=== PATIENT | male | born 1940 | race Caucasian/White ===

== ENCOUNTER 2016-05-16 10:05 | Emergency (ER) | payer OTHER ==
--- NOTE | 2016-05-16 11:04 | ERRECORD ---
[facility] EMERGENCY RECORD HPI URI (10:49 JL) CHIEF COMPLAINT: Patient presents for evaluation of sore throat, Patient presents for evaluation of nasal congestion, Patient presents for evaluation of cough, Patient presents for evaluation of PT with 1.5 weeks of runny nose, congestion, dry cough, sore throat, and body aches. Treated by PCP with clindamycin but no help. HISTORIAN: History provided by patient. LOCATION: Symptoms are generalized. QUALITY: Pain is dull in nature, described as aching. TIME COURSE: Patient unable to describe onset of symptoms, There has been no change in the patient's symptoms over time, are intermittent. ASSOCIATED WITH: No associated chest pain, No associated chills, No associated fever, Associated with headache, intermittent, No associated shortness of breath. EXACERBATED BY: Patient's condition exacerbated by nothing. RELIEVED BY: Patient's condition relieved by nothing. ROS (10:53 JLOY) CONSTITUTIONAL: Historian denies chills, denies fever. EYES: Historian denies eye pain, denies eye redness, denies eye discharge. ENT: Historian reports otalgia, reports rhinorrhea, reports sinus pain, reports sore throat. CARDIOVASCULAR: Historian denies chest pain. RESPIRATORY: Historian reports cough, denies shortness of breath, denies sputum. GI: Historian denies abdominal pain, denies diarrhea, denies nausea, denies vomiting. GENITOURINARY MALE: Historian denies dysuria, denies hematuria. MUSCULOSKELETAL: Historian reports arthralgias, reports myalgias. SKIN: Historian denies rash, denies skin changes. NEUROLOGIC: Historian denies dizziness, reports headache, denies paralysis, denies paresthesias, denies sensory changes. PAST MEDICAL HISTORY MEDICAL HISTORY: Past medical history includes genitourinary history, benign prostatic hypertrophy, Past medical history includes cardiac history, unspecified arrhythmia, gastrointestinal disease, gastroesophageal reflux disease, musculoskeletal disorder, osteoarthritis, cardiac history, coronary artery disease.history of diabetes, Type II, history of hyperlipidemia, includes history of hypertension, which has been treated, musculoskeletal disorder, gout. (10:21 MCBE) MALE SURGICAL HISTORY: hemorroidectomy,intestinal surg,cataract 2 years ago. (10:21 MCBE) SOCIAL HISTORY: Patient denies alcohol use, Patient denies &a-1R&a+25V*p+0X*[id number]*c152B*c15G*c2P*p-0X&a-25V&a+1R Name: Sugar Jamison : 1940 M75 MedRec: [id number] AcctNum: [id number] Prepared: Prachi May 16, 2016 11:02 by Interface Page 1 of 4 pMD [facility] EMERGENCY RECORD drug use, Patient is a former tobacco user, smoked cigarettes, Patient quit smoking more than 10 years ago. (10:21 MCBE) NOTES: Nursing records reviewed, Agree with nursing records. (10:54 [facility]) KNOWN ALLERGIES Actos actos,lipitor,gliburide,vicodin,relafen,lodine,celebrex,damon (Unconfirmed) aspirin: Reaction: Nausea, Severity: Moderate CeleBREX glyBURIDE Januvia Lipitor Lodine Relafen Sulfa (Sulfonamide Antibiotics) Vicodin CURRENT MEDICATIONS (10:19 MC) Victoza 3-Ferdinand: PEN INJECTOR (ML) : Strength - 0.6 mg/0.1 mL (18 mg/3 mL) : [3 mL(s)] : SUBCUTANEOUS Patient Dose: 0.6 mL Subcutaneous once a day. folic acid: TABLET : Strength - 1 mg : ORAL Patient Dose: 1 tab(s) Oral once a day. allopurinol: TABLET : Strength - 300 mg : ORAL Patient Dose: 1 tab(s) Oral once a day. metFORMIN: TABLET : Strength - 500 mg : ORAL Patient Dose: 2 tab(s) Oral 2 times a day. Plavix: TABLET : Strength - 75 mg : ORAL Patient Dose: 1 tab(s) Oral once a day. finasteride: TABLET : Strength - 5 mg : ORAL Patient Dose: 1 tab(s) Oral once a day (in the morning). doxazosin: TABLET : Strength - 8 mg : ORAL Patient Dose: 1 tab(s) Oral once a day. diclofenac sodium: TABLET, DELAYED RELEASE (ENTERIC COATED) : Strength - 75 mg : ORAL Patient Dose: 1 tab(s) Oral 2 times a day. Aleve: TABLET : Strength - 220 mg : ORAL Patient Dose: 1 tab(s) Oral As Needed. methotrexate sodium: TABLET : Strength - 2.5 mg : ORAL Patient Dose: 8 tab(s) Oral once a week. &a-1R&a+25V*p+0X*t2993T*c152B*c15G*c2P*p-0X&a-25V&a+1R Name: Sugar Jamison : 1940 M75 MedRec: [id number] AcctNum: [id number] Prepared: Prachi May 16, 2016 11:02 by Interface Page 2 of 4 pMD [facility] EMERGENCY RECORD Colcrys: TABLET : Strength - 0.6 mg : ORAL Patient Dose: 1 tab(s) Oral 2 times a day. hydrOXYzine HCl: TABLET : Strength - 25 mg : ORAL Patient Dose: 1 tab(s) Oral every 8 hours PRN. ICaps: TABLET, EXTENDED RELEASE : ORAL Patient Dose: 1 cap(s) Oral once a day (in the morning). Vitamin B-12: TABLET : Strength - 1,000 mcg : ORAL Patient Dose: 3 cap(s) Oral once a day (in the morning). Keflex: CAPSULE : Strength - 500 mg : ORAL Patient Dose: 1 tab(s) Oral 4 times a day. VITAL SIGNS (10:15 MCBE) VITAL SIGNS: BP: 188/84, Pulse: 94, Resp: 18, Temp: 97.5 (Oral), Pain: 7, O2 sat: 95 on Room Air, Time: 05/16/2016 10:15. PHYSICAL EXAM (10:53 JLOY) CONSTITUTIONAL: Vital signs reviewed, Patient appears non toxic, Patient alert and oriented to person, place and time. EYES: Eye exam included findings of eyelids normal to inspection, Pupils equally round and reactive to light, Conjunctiva normal. ENT: Ear exam normal, external ear normal, tympanic membranes normal, Pharynx exam normal, Uvula exam normal, Tonsil exam normal, Mouth exam normal, mucous membranes moist. NECK: Neck exam included findings of normal range of motion, Trachea midline, no cervical adenopathy. RESPIRATORY CHEST: Respiratory exam included findings of no respiratory distress, Breath sounds clear, No wheezing, No rales, No rhonchi, Chest exam included findings of chest movement symmetrical. CARDIOVASCULAR: Cardiovascular exam included findings of heart rate regular rate and rhythm, Heart sounds normal. ABDOMEN MALE: Abdominal exam included findings of abdomen nontender, Bowel sounds normal. BACK: Back exam included findings of normal inspection. UPPER EXTREMITY: Upper extremity exam included findings of inspection normal. LOWER EXTREMITY: Lower extremity exam included findings of inspection normal. NEURO: Sheridan coma scale 15, Neuro exam findings include patient oriented to person, place and time, Speech normal. SKIN: Skin exam included findings of skin warm, dry, and normal in color, no rash. PSYCHIATRIC: Normal affect. PROBLEM LIST No recorded problems &a-1R&a+25V*p+0X*o9160W*c152B*c15G*c2P*p-0X&a-25V&a+1R Name: JamisonSugar : 1940 M75 MedRec: [id number] AcctNum: [id number] Prepared: FriMay 16, 2016 11:02 by Interface Page 3 of 4 pMD [facility] EMERGENCY RECORD DIAGNOSIS (10:48 LITA) FINAL: PRIMARY: Acute URI. PRESCRIPTION No recorded prescriptions DISPOSITION PATIENT: Disposition Type: Discharge, Disposition: *Discharge Home. (10:48 LITA) Patient left the department. (11:00 [facility]) Whipple: LITA=MD George, Kevan [place]UM[place]=Ashley Armstrong &a-1R&a+25V*p+0X*c7194G*c152B*c15G*c2P*p-0X&a-25V&a+1R Name: Sugar Jamison : 1940 M75 MedRec: [id number] AcctNum: [id number] Prepared: FriMay 16, 2016 11:02 by Interface Page 4 of 4 pMD MTDD
--- NOTE | 2016-05-16 11:05 | PICIS ---
[facility] EMERGENCY RECORD TRIAGE (FriMay 16, 2016 10:18 MCBE) TRIAGE NOTES: symptoms have been going on for 4 days. (FriMay 16, 2016 10:18 MCBE) PATIENT: NAME: Sugar Jamison, AGE: 75, GENDER: male, : Prachi 1940, TIME OF GREET: FriMay 16, 2016 10:06, PREFERRED LANGUAGE: Kyrgyz, ETHNICITY: Not or , ECODE BILLING MAP: [facility], SSN: [id number], Zip Code: [address], KG WEIGHT: [phone], PHONE: , , , PERSON ID: [id number], PCP: Radhika ABRAMS C. HENRY. (FriMay 16, 2016 10:18 MCBE) COMPLAINT: COUGH/SORE THROAT/RUNNY NOSE/BODY ACHES. (FriMay 16, 2016 10:18 MCBE) ADMISSION: URGENCY: 4 Non Urgent, ADMISSION SOURCE: Home, TRANSPORT: CAR, BED: ER -04. (FriMay 16, 2016 10:18 MCBE) ASSESSMENT: Assessment: patient is noted to be congested. patient is unsure if he has been running a fever. patient reports not being able to take medications due to not being able to swallow pills. (10:21 MCBE) IMMUNIZATIONS: Flu vaccine up to date, Tetanus immunization up to date, Pneumococcal vaccine up to date. (10:21 MCBE) SIRS SCORING: Heart Rate 55-109 (0), Temp range 96.8-101.1 (0), respiratory rate 12-24 (0), Mental Status altered: no (0), Infection or Suspected Infection: No. (10:21 MCBE) TRIAGE SCREENING: Patient denies suicidal ideation, Patient denies presence of domestic violence. (10:21 MCBE) PROVIDERS: TRIAGE NURSE: Ashley Armstrong. (FriMay 16, 2016 10:18 MCBE) VITAL SIGNS: BP 188/84, Pulse 94, Resp 18, Temp 97.5, (Oral), Pain 7, O2 Sat 95, on Room Air, Time 05/16/2016 10:15. (10:15 MCBE) PREVIOUS VISIT ALLERGIES: Actos, aspirin, CeleBREX, glyBURIDE, Januvia, Lipitor, Lodine, Relafen, Sulfa (Sulfonamide Antibiotics), Vicodin. (FriMay 16, 2016 10:18 MCBE) Actos, aspirin, CeleBREX, glyBURIDE, Januvia, Lipitor, Lodine, Relafen, Sulfa (Sulfonamide Antibiotics), Vicodin. (10:21 MCBE) KNOWN ALLERGIES Actos actos,lipitor,gliburide,vicodin,relafen,lodine,celebrex,damon (Unconfirmed) aspirin: Reaction: Nausea, Severity: Moderate CeleBREX glyBURIDE Januvia Lipitor Lodine Relafen Sulfa (Sulfonamide Antibiotics) Vicodin CURRENT MEDICATIONS (10:19 MCBE) Victoza 3-Ferdinand: &a-1R&a+25V*p+0X*p3300E*c152B*c15G*c2P*p-0X&a-25V&a+1R Name: Sugar Jamison : 1940 M75 MedRec: [id number] AcctNum: [id number] Prepared: FriMay 16, 2016 11:07 by Interface Page 1 of 7 pMD [facility] EMERGENCY RECORD PEN INJECTOR (ML) : Strength - 0.6 mg/0.1 mL (18 mg/3 mL) : [3 mL(s)] : SUBCUTANEOUS Patient Dose: 0.6 mL Subcutaneous once a day. folic acid: TABLET : Strength - 1 mg : ORAL Patient Dose: 1 tab(s) Oral once a day. allopurinol: TABLET : Strength - 300 mg : ORAL Patient Dose: 1 tab(s) Oral once a day. metFORMIN: TABLET : Strength - 500 mg : ORAL Patient Dose: 2 tab(s) Oral 2 times a day. Plavix: TABLET : Strength - 75 mg : ORAL Patient Dose: 1 tab(s) Oral once a day. finasteride: TABLET : Strength - 5 mg : ORAL Patient Dose: 1 tab(s) Oral once a day (in the morning). doxazosin: TABLET : Strength - 8 mg : ORAL Patient Dose: 1 tab(s) Oral once a day. diclofenac sodium: TABLET, DELAYED RELEASE (ENTERIC COATED) : Strength - 75 mg : ORAL Patient Dose: 1 tab(s) Oral 2 times a day. Aleve: TABLET : Strength - 220 mg : ORAL Patient Dose: 1 tab(s) Oral As Needed. methotrexate sodium: TABLET : Strength - 2.5 mg : ORAL Patient Dose: 8 tab(s) Oral once a week. Colcrys: TABLET : Strength - 0.6 mg : ORAL Patient Dose: 1 tab(s) Oral 2 times a day. hydrOXYzine HCl: TABLET : Strength - 25 mg : ORAL Patient Dose: 1 tab(s) Oral every 8 hours PRN. ICaps: TABLET, EXTENDED RELEASE : ORAL Patient Dose: 1 cap(s) Oral once a day (in the morning). Vitamin B-12: TABLET : Strength - 1,000 mcg : ORAL Patient Dose: 3 cap(s) Oral once a day (in the morning). Keflex: CAPSULE : Strength - 500 mg : ORAL Patient Dose: 1 tab(s) Oral 4 times a day. VITAL SIGNS (10:15 MCBE) VITAL SIGNS: BP: 188/84, Pulse: 94, Resp: 18, Temp: 97.5 (Oral), Pain: 7, O2 sat: 95 on Room Air, Time: 05/16/2016 10:15. NURSING ASSESSMENT: ENT (10:27 MCBE) &a-1R&a+25V*p+0X*q4930O*c152B*c15G*c2P*p-0X&a-25V&a+1R Name: Sugar Jamison : 1940 M75 MedRec: [id number] AcctNum: [id number] Prepared: [facility] May 16, 2016 11:07 by Interface Page 2 of 7 pMD [facility] EMERGENCY RECORD CONSTITUTIONAL: Complex assessment performed, Patient arrives ambulatory, Gait steady, History obtained from patient, Patient appears comfortable, Patient cooperative, Patient alert, Oriented to person, place and time, Skin warm, Skin dry, Skin normal in color, Mucous membranes pink, Mucous membranes moist, Patient is well-groomed, Patient complains of headache, runny nose, sore throat, body aches. PAIN: on a scale 0-10 patient rates pain as 7, generalized. ENT: Ear assessment findings include ear normal to inspection, Nasal assessment findings include nose normal to inspection, Tonsils, red, Mucous membranes pink, and moist, Unable to swallow, complains of difficulty swallowing, Speech normal. RESPIRATORY/CHEST: Breath sounds clear, Respiratory assessment findings include respiratory effort easy, Respirations regular, Conversing normally, Neck and chest exam findings include trachea midline, Chest expansion equal, Chest movement symmetrical, no signs of distress, no retractions noted, no associated cough noted, no associated fever. NURSING PROCEDURE: DISCHARGE NOTE (10:59 MCBE) DISCHARGE: Patient discharged to home, ambulating without assistance, driving self, unaccompanied, Summary of Care printed/ provided, Discharge instructions given to patient, Simple or moderate discharge teaching performed, by ASHLEY POWELL, EXPLAINED DISCHARGE INSTRUCTIONS. INSTRUCTED TO RETURN IF S/S WORSEN. INSTRUCTED TO COMPLETE ALL ANITBIOTICS. INFORMED PATIENT PRESCRIPTION CAN BE FILLED AT ANY PHARMACY, Medication reconciliation form given, and reviewed with patient, Above person(s) verbalized understanding of discharge instructions and follow-up care, Patient treated and evaluated by physician. BELONGINGS: Belongings and valuables with patient upon arrival to the Emergency Department include:, Belongings and valuables with patient at time of discharge include:, jacket, pants, shirt, shoes, Belongings remain with patient, Valuables remain with patient, Notes: medication black bag with patient. NURSING PROCEDURE: ENT (10:18 JPAR) PATIENT IDENTIFIER: Patient actively involved in identification process, Patient's identity verified by patient stating name, Patient's identity verified by patient stating date, Patient's identity verified by hospital ID lindsey. ENT: ENT care indicated for specimen collection, Nasal swab collected, labeled in the presence of the patient and sent to lab for testing of, influenza A, influenza B, Throat swab collected, labeled in the presence of the patient and sent to the lab for testing of, rapid strep, Last tetanus shot received less than 5 years ago. SAFETY: Side rails up, Cart/Stretcher in lowest position, Call light within reach, Hospital ID band on. &a-1R&a+25V*p+0X*h2758W*c152B*c15G*c2P*p-0X&a-25V&a+1R Name: Sugar Jamison : 1940 M75 MedRec: [id number] AcctNum: [id number] Prepared: FriMay 16, 2016 11:07 by Interface Page 3 of 7 pMD [facility] EMERGENCY RECORD ORDER DETAILS Order Name: Influenza A&B Ag Screen, Status: Active, Time: 10:20 05/16/2016, User: BRIANA, - Ordered for: MD Vazquez Joshua, - Entered by: ANDRE Sandhu Jason - Prachi May 16, 2016 10:20, - Quantity: 1, Order Name: Strep Group A Screen, Status: Active, Time: 10:20 05/16/2016, User: BRIANA, - Ordered for: MD Vazquez Joshua, - Entered by: ANDRE Sandhu Jason - [facility] May 16, 2016 10:20, - Quantity: 1. HPI URI (10:49 [facility]) CHIEF COMPLAINT: Patient presents for evaluation of sore throat, Patient presents for evaluation of nasal congestion, Patient presents for evaluation of cough, Patient presents for evaluation of PT with 1.5 weeks of runny nose, congestion, dry cough, sore throat, and body aches. Treated by PCP with clindamycin but no help. HISTORIAN: History provided by patient. LOCATION: Symptoms are generalized. QUALITY: Pain is dull in nature, described as aching. TIME COURSE: Patient unable to describe onset of symptoms, There has been no change in the patient's symptoms over time, are intermittent. ASSOCIATED WITH: No associated chest pain, No associated chills, No associated fever, Associated with headache, intermittent, No associated shortness of breath. EXACERBATED BY: Patient's condition exacerbated by nothing. RELIEVED BY: Patient's condition relieved by nothing. ROS (10:53 [facility]) CONSTITUTIONAL: Historian denies chills, denies fever. EYES: Historian denies eye pain, denies eye redness, denies eye discharge. ENT: Historian reports otalgia, reports rhinorrhea, reports sinus pain, reports sore throat. CARDIOVASCULAR: Historian denies chest pain. RESPIRATORY: Historian reports cough, denies shortness of breath, denies sputum. GI: Historian denies abdominal pain, denies diarrhea, denies nausea, denies vomiting. GENITOURINARY MALE: Historian denies dysuria, denies hematuria. MUSCULOSKELETAL: Historian reports arthralgias, reports myalgias. SKIN: Historian denies rash, denies skin changes. NEUROLOGIC: Historian denies dizziness, reports headache, denies paralysis, denies paresthesias, denies sensory changes. &a-1R&a+25V*p+0X*l6566T*c152B*c15G*c2P*p-0X&a-25V&a+1R Name: Sugar Jamison : 1940 M75 MedRec: [id number] AcctNum: [id number] Prepared: Prachi May 16, 2016 11:07 by Interface Page 4 of 7 pMD [facility] EMERGENCY RECORD PAST MEDICAL HISTORY MEDICAL HISTORY: Past medical history includes genitourinary history, benign prostatic hypertrophy, Past medical history includes cardiac history, unspecified arrhythmia, gastrointestinal disease, gastroesophageal reflux disease, musculoskeletal disorder, osteoarthritis, cardiac history, coronary artery disease.history of diabetes, Type II, history of hyperlipidemia, includes history of hypertension, which has been treated, musculoskeletal disorder, gout. (10:21 MCBE) MALE SURGICAL HISTORY: hemorroidectomy,intestinal surg,cataract 2 years ago. (10:21 MCBE) SOCIAL HISTORY: Patient denies alcohol use, Patient denies drug use, Patient is a former tobacco user, smoked cigarettes, Patient quit smoking more than 10 years ago. (10:21 MCBE) NOTES: Nursing records reviewed, Agree with nursing records. (10:54 JLOY) PHYSICAL EXAM (10:53 JLOY) CONSTITUTIONAL: Vital signs reviewed, Patient appears non toxic, Patient alert and oriented to person, place and time. EYES: Eye exam included findings of eyelids normal to inspection, Pupils equally round and reactive to light, Conjunctiva normal. ENT: Ear exam normal, external ear normal, tympanic membranes normal, Pharynx exam normal, Uvula exam normal, Tonsil exam normal, Mouth exam normal, mucous membranes moist. NECK: Neck exam included findings of normal range of motion, Trachea midline, no cervical adenopathy. RESPIRATORY CHEST: Respiratory exam included findings of no respiratory distress, Breath sounds clear, No wheezing, No rales, No rhonchi, Chest exam included findings of chest movement symmetrical. CARDIOVASCULAR: Cardiovascular exam included findings of heart rate regular rate and rhythm, Heart sounds normal. ABDOMEN MALE: Abdominal exam included findings of abdomen nontender, Bowel sounds normal. BACK: Back exam included findings of normal inspection. UPPER EXTREMITY: Upper extremity exam included findings of inspection normal. LOWER EXTREMITY: Lower extremity exam included findings of inspection normal. NEURO: Mariam coma scale 15, Neuro exam findings include patient oriented to person, place and time, Speech normal. SKIN: Skin exam included findings of skin warm, dry, and normal in color, no rash. PSYCHIATRIC: Normal affect. EVENTS TRANSFER: Triage to Emergency Emergency Room -04. (10:18 MCBE) Removed from Emergency Emergency Room -04. (11:00 MCBE) PROBLEM LIST &a-1R&a+25V*p+0X*h9987X*c152B*c15G*c2P*p-0X&a-25V&a+1R Name: Sugar Jamison : 1940 M75 MedRec: [id number] AcctNum: [id number] Prepared: FriMay 16, 2016 11:07 by Interface Page 5 of 7 pMD [facility] EMERGENCY RECORD No recorded problems DIAGNOSIS (10:48 JLOY) FINAL: PRIMARY: Acute URI. DISPOSITION PATIENT: Disposition Type: Discharge, Disposition: *Discharge Home. (10:48 JLOY) Patient left the department. (11:00 MCBE) INSTRUCTION (10:49 JLOY) DISCHARGE: URI ANTIBIOTIC TREATMENT ADULT. FOLLOWUP: Radhika ABRAMS, Slava TAY, [facility], [address] [place] [id number], [phone], Follow up with Primary Care Physician in 7-10 days. SPECIAL: Finish your previously prescribed antibiotics. PRESCRIPTION No recorded prescriptions IMAGING *DISCHARGE INSTRUCTIONS RECEIPT: Image captured from scanner. (11:01 MCBE) *SUPPLY CHARGE SHEET: Image captured from scanner. (11:02 MCBE) ADMIN (10:54 JLOY) DIGITAL SIGNATURE: MD Vazquez Joshua. RESULTS MICROBIOLOGY: Influenza A&B Ag Screen: [id number] Collection DT: FriMay 16, 2016 10:26, See comment below , @ ER ROOM#: ER-04 Source: Nasal swab Spec Desc: , Influenza A Antigen: NEGATIVE for the , presence of , INFLUENZA A Antigen , Influenza B Antigen: NEGATIVE for the , presence of , INFLUENZA B Antigen . (10:47 JPAR) Strep Group A Screen: [id number] Collection DT: FriMay 16, 2016 10:26, See comment below , @ ER ROOM#: ER-04 Source: Throat Spec Desc: PENDING, Strep A Negative CDC recommends , confirmation by , culture on all , negative , Strep negative line 1 Group A , Streptococcus rapid , &a-1R&a+25V*p+0X*h4654J*c152B*c15G*c2P*p-0X&a-25V&a+1R Name: Sugar Jamison : 1940 M75 MedRec: [id number] AcctNum: [id number] Prepared: FriMay 16, 2016 11:07 by Interface Page 6 of 7 pMD [facility] EMERGENCY RECORD screens. Please , order , Strep negative line 2 a throat culture if , clinically , indicated. , Rapid Strep Screen:Throat Negative . (10:47 BRIANA) Influenza A&B Ag Screen: [id number] Collection DT: FriMay 16, 2016 10:26, See comment below , @ ER ROOM#: ER-04 Source: Nasal swab Spec Desc: , Influenza A Antigen: NEGATIVE for the , presence of , INFLUENZA A Antigen , Influenza B Antigen: NEGATIVE for the , presence of , INFLUENZA B Antigen . (10:48 ILTA) Strep Group A Screen: [id number] Collection DT: FriMay 16, 2016 10:26, See comment below , @ ER ROOM#: ER-04 Source: Throat Spec Desc: PENDING, Strep A Negative CDC recommends , confirmation by , culture on all , negative , Strep negative line 1 Group A , Streptococcus rapid , screens. Please , order , Strep negative line 2 a throat culture if , clinically , indicated. , Rapid Strep Screen:Throat Negative . (10:48 LITA) Whipple: LITA=MD George, Kevan WARREN=ANDRE Sandhu, Goran PALUMBO=Ashley Armstrong &a-1R&a+25V*p+0X*c2972W*c152B*c15G*c2P*p-0X&a-25V&a+1R Name: ShaheenSugar : 1940 M75 MedRec: [id number] AcctNum: [id number] Prepared: FriMay 16, 2016 11:07 by Interface Page 7 of 7 pMD [facility] MEDICATION RECONCILIATION You were seen in the Emergency Department on: FriMay 16, 2016 KNOWN ALLERGIES Actos actos,lipitor,gliburide,vicodin,relafen,lodine,celebrex,damon (Unconfirmed) aspirin: Reaction: Nausea, Severity: Moderate CeleBREX glyBURIDE Januvia Lipitor Lodine Relafen Sulfa (Sulfonamide Antibiotics) Vicodin HOME MEDICATIONS CONTINUE PRESCRIBED Aleve : TABLET : Strength - 220 mg : ORAL Continue as prescribed Patient had been takin tab(s) Oral As Needed. allopurinol : TABLET : Strength - 300 mg : ORAL Continue as prescribed Patient had been takin tab(s) Oral once a day. Colcrys : TABLET : Strength - 0.6 mg : ORAL Continue as prescribed Patient had been takin tab(s) Oral 2 times a day. diclofenac sodium : TABLET, DELAYED RELEASE (ENTERIC COATED) : Strength - 75 mg : ORAL Continue as prescribed Patient had been takin tab(s) Oral 2 times a day. doxazosin : TABLET : Strength - 8 mg : ORAL Continue as prescribed Patient had been takin tab(s) Oral once a day. finasteride : TABLET : Strength - 5 mg : ORAL Continue as prescribed Patient had been takin tab(s) Oral once a day (in the morning). &a-1R&a+25V*p+0X*x3477M*c202B*c15G*c2P*p-0X&a-25V&a+1R Name: Sugar Jamison : 1940 M75 MedRec: [id number] AcctNum: [id number] Prepared: FriMay 16, 2016 11:07 by Interface pMD [facility] MEDICATION RECONCILIATION folic acid : TABLET : Strength - 1 mg : ORAL Continue as prescribed Patient had been takin tab(s) Oral once a day. hydrOXYzine HCl : TABLET : Strength - 25 mg : ORAL Continue as prescribed Patient had been takin tab(s) Oral every 8 hours PRN. ICaps : TABLET, EXTENDED RELEASE : ORAL Continue as prescribed Patient had been takin cap(s) Oral once a day (in the morning). Keflex : CAPSULE : Strength - 500 mg : ORAL Continue as prescribed Patient had been takin tab(s) Oral 4 times a day. metFORMIN : TABLET : Strength - 500 mg : ORAL Continue as prescribed Patient had been takin tab(s) Oral 2 times a day. methotrexate sodium : TABLET : Strength - 2.5 mg : ORAL Continue as prescribed Patient had been takin tab(s) Oral once a week. Plavix : TABLET : Strength - 75 mg : ORAL Continue as prescribed Patient had been takin tab(s) Oral once a day. Victoza 3-Ferdinand : PEN INJECTOR (ML) : Strength - 0.6 mg/0.1 mL (18 mg/3 mL) : [3 mL(s)] : SUBCUTANEOUS Continue as prescribed Patient had been takin.6 mL Subcutaneous once a day. Vitamin B-12 : TABLET : Strength - 1,000 mcg : ORAL Continue as prescribed Patient had been takin cap(s) Oral once a day (in the morning). &a-1R&a+25V*p+0X*r2397C*c202B*c15G*c2P*p-0X&a-25V&a+1R Name: Sugar Jamison : 1940 M75 MedRec: [id number] AcctNum: [id number] Prepared: Prachi May 16, 2016 11:07 by Interface pMJuan BUTT
== END 2016-05-16 10:58 | disposition home or self-care (01) ==
LOC: NAV ERS 10:05
DX: J06.9 Acute upper respiratory infection, unspecified (principal); N40.0 Benign prostatic hyperplasia without lower urinary tract symptoms; I49.9 Cardiac arrhythmia, unspecified; K21.9 Gastro-esophageal reflux disease without esophagitis; I25.10 Atherosclerotic heart disease of native coronary artery without angina pectoris; E11.9 Type 2 diabetes mellitus without complications; E78.5 Hyperlipidemia, unspecified; I10 Essential (primary) hypertension; M10.9 Gout, unspecified; Z87.891 Personal history of nicotine dependence; Z79.84 Long term (current) use of oral hypoglycemic drugs; Z79.899 Other long term (current) drug therapy
CPT/HCPCS: 87430; 99283

== ENCOUNTER 2016-11-04 11:49 | Outpatient (CLI) | payer MEDICARE, MEDICAID ==
[2016-11-04 14:35] LABS: Bilirubin Negative (Negative); Blood, Urine Negative (Negative); Glucose, Urine (Dipstick) 100 mg/dL (Negative); Leukocyte Negative (Negative); Protein, Urine (Dipstick) Negative (Neg-Trace); Specific Gravity, Urine 1.015 (1.005-1.030); Urobilinogen 0.2 mg/dL (0.2-1.0)
[2016-11-04 14:36] LABS: Clarity SL HAZY (Clear)
[2016-11-04 18:18] LABS: Nitrite Positive (Negative)
[2016-11-04 18:25] LABS: Bacteria/HPF None Seen HPF (None Seen); RBC/HPF 0-3 HPF (0-3); WBC/HPF 0-3 HPF (0-3)
== END 2016-11-04 11:50 | disposition home or self-care (01) ==
LOC: NAVSJIPCSP 11:49
PROVIDERS: ATTEND Family Medicine
DX: R31.9 Hematuria, unspecified (principal)
CPT/HCPCS: 81003; 81015

== ENCOUNTER 2016-11-26 09:00 | Outpatient (CLI) | payer MEDICARE, OTHER ==
[2016-11-26 12:53] LABS: #Basophils 0.1 thou/uL (0.0-0.2); #Eosinphils 0.4 thou/uL (0.0-0.7); #Lymphocytes 1.4 thou/uL (1.20-3.40); #Monocytes 0.2 thou/uL (0.11-0.59); #Neutrophils 3.8 thou/uL (1.40-6.50); %Basophils 1.5 % (0.0-1.0); %Eosinophils 6.2 % (0.0-10.0); %Lymphocytes 23.3 % (21.0-51.0); Hemoglobin 12.5 g/dL (14.0-18.0); Mean Corpuscular HGB CONC 32.8 g/dL (32.0-36.0); Mean Corpuscular Hemoglobin 28.4 pg (27.0-31.0); Mean Corpuscular Volume 86.7 fl (80.0-94.0); Mean Platelet Volume 5.9 fL (7.4-10.4); Platelet Count 185 thou/uL (130-400); RBC Distribution Width 13.2 % (11.5-14.5); Red Blood Cell (RBC) Count 4.39 mill/uL (4.70-6.10); White Blood Cell (WBC) Count 5.8 thou/uL (4.8-10.8)
[2016-11-26 13:05] LABS: ALT (SGPT) 14 U/L (8-55); AST (SGOT) 14 U/L (5-34); Albumin 4.2 g/dL (3.4-4.8); Alkaline Phosphatase 59 U/L (40-150); Anion Gap 17 mmol/L (10-20); BUN (Urea Nitrogen) 26 mg/dL (8.4-25.7); Bilirubin, Direct 0.2 mg/dL (0.1-0.3); Bilirubin, Total 0.5 mg/dL (0.2-1.2); Calc. Creatinine Clearance 0 mL/min (70-130); Calcium 9.2 mg/dL (7.8-10.44); Carbon Dioxide 22 mmol/L (23-31); Cardiac Risk 3.2 (Less than 4.5); Chloride 107 mmol/L (98-107); Cholesterol 171 mg/dl (< 200 Desired); Estimated GFR-MDRD 59; Glucose 112 mg/dL (83-110); HDL Cholesterol 53 mg/dL (>60 Neg Risk); LDL Cholesterol, Calculated 109 mg/dL; Potassium 4.6 mmol/L (3.5-5.1); Protein, Total 6.3 g/dL (5.8-8.1); Sodium 141 mmol/L (136-145); Triglycerides 46 mg/dL (Less than 150)
[2016-11-26 13:27] LABS: Hemoglobin A1c 5.9 % (4.0-6.0)
== END 2016-11-26 09:01 | disposition home or self-care (01) ==
LOC: NAVSJIPCSP 09:00
PROVIDERS: ATTEND Family Medicine
DX: E11.9 Type 2 diabetes mellitus without complications (principal); I10 Essential (primary) hypertension; I25.10 Atherosclerotic heart disease of native coronary artery without angina pectoris; M15.9 Polyosteoarthritis, unspecified; M06.9 Rheumatoid arthritis, unspecified; M10.9 Gout, unspecified; N40.1 Benign prostatic hyperplasia with lower urinary tract symptoms; K21.9 Gastro-esophageal reflux disease without esophagitis; Z79.899 Other long term (current) drug therapy
CPT/HCPCS: 36415; 80048; 80061; 80076; 83036; 84443; 85025

== ENCOUNTER → 2017-03-25 | Emergency (ER) | payer MEDICARE, OTHER ==
[~2017-03-25] MED LIST: Bacitracin Zinc 1 Packet ONE
== END ==
LOC: NAV ERS 17:03
DX: S51.812A Laceration without foreign body of left forearm, initial encounter (principal); N40.0 Benign prostatic hyperplasia without lower urinary tract symptoms; K21.9 Gastro-esophageal reflux disease without esophagitis; E11.9 Type 2 diabetes mellitus without complications; E78.5 Hyperlipidemia, unspecified; M10.9 Gout, unspecified; I10 Essential (primary) hypertension; Z87.891 Personal history of nicotine dependence; Z79.1 Long term (current) use of non-steroidal anti-inflammatories (NSAID); Z79.4 Long term (current) use of insulin; Z79.899 Other long term (current) drug therapy; W26.8XXA Contact with other sharp object(s), not elsewhere classified, initial encounter; Y92.69 Other specified industrial and construction area as the place of occurrence of the external cause; Y99.0 Civilian activity done for income or pay; I25.10 Atherosclerotic heart disease of native coronary artery without angina pectoris
CPT/HCPCS: 99283

== ENCOUNTER 2017-12-30 10:24 | Emergency (ER) | payer MEDICARE, OTHER ==
[2017-12-30] MEDS ORDERED: Fluorescein Opthalmic Strip ONE (10:32)
== END 2017-12-30 11:32 | disposition home or self-care (01) ==
LOC: NAV ERS 10:24
DX: H11.421 Conjunctival edema, right eye (principal); K21.9 Gastro-esophageal reflux disease without esophagitis; M19.90 Unspecified osteoarthritis, unspecified site; E11.9 Type 2 diabetes mellitus without complications; M10.9 Gout, unspecified; I10 Essential (primary) hypertension; E78.5 Hyperlipidemia, unspecified; I49.9 Cardiac arrhythmia, unspecified; Z79.899 Other long term (current) drug therapy; Z87.891 Personal history of nicotine dependence; Z79.84 Long term (current) use of oral hypoglycemic drugs
CPT/HCPCS: 99283

== ENCOUNTER 2018-01-29 10:03 | Emergency (ER) | payer MEDICARE, OTHER ==
[2018-01-29 10:48] LABS: Bilirubin Negative (Negative); Blood, Urine Trace (Negative); Clarity Clear (Clear); Glucose, Urine (Dipstick) Negative (Negative); Leukocyte Moderate (Negative); Nitrite Negative (Negative); Protein, Urine (Dipstick) Negative (Neg-Trace); Urobilinogen 0.2 mg/dL (0.2-1.0); pH, Urine 5.5 (5.0-9.0)
[2018-01-29 11:01] LABS: Bacteria/HPF Rare-Few HPF (None Seen); RBC/HPF 0-3 HPF (0-3); Squamous Epithelial 0-3 HPF (0-3)
[2018-01-29 11:03] LABS: Trichomonas/HPF Rare HPF (None Seen)
--- NOTE | 2018-01-29 11:14 | CT ---
CT LUMBAR SPINE WITH CORONAL AND SAGITTAL REFORMATIONS: Date: 01/29/18 HISTORY: Low back pain radiating down left leg. FINDINGS: The vertebral body heights are maintained. No fracture or subluxation is seen in the lumbar spine. Mi nimal anterior wedging is noted in the superior end plate of T12 vertebral body. Bulging discs, osteo phyte formation, and facet hypertrophic changes are most prominent at L3-4, L4-5, and L5-S1 levels. T here is bilateral neural foraminal stenosis and central canal stenosis at L4-5 level. 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 POS: LUMA
--- NOTE | 2018-01-29 11:16 | RAD ---
LEFT HIP 2 VIEWS: Date: 01/29/18 PROVIDED CLINICAL HISTORY: Left hip pain. FINDINGS: There is no evidence for fracture or other acute osseous abnormality. If there is persistent clinical concern, conservative management and follow-up imaging are advised. IMPRESSION: As above. POS: LUMA
== END 2018-01-29 11:42 | disposition home or self-care (01) ==
LOC: NAV ERS 10:03
DX: M47.9 Spondylosis, unspecified (principal); A59.03 Trichomonal cystitis and urethritis; E11.9 Type 2 diabetes mellitus without complications; I10 Essential (primary) hypertension; Z87.891 Personal history of nicotine dependence; Z79.899 Other long term (current) drug therapy
CPT/HCPCS: 72131; 81003; 81015; 87086

== ENCOUNTER 2018-02-01 12:49 | Emergency (ER) | payer MEDICARE, OTHER ==
[2018-02-01] MEDS ORDERED: Bacitracin Zinc 1 Packet ONE (13:23)
--- NOTE | 2018-02-01 14:21 | RAD ---
RIGHT ANKLE 3 VIEWS: HISTORY: Right ankle injury. FINDINGS: Ankle mortise and talar dome are intact. Moderate osteophytosis. Mild joint space narrowing. No ac [place] fracture or dislocation. IMPRESSION: Osteoarthritic changes right ankle. No acute osseous abnormalities are demonstrated. POS: [facility]
--- NOTE | 2018-02-01 14:21 | RAD ---
LEFT LOWER LEG 2 VIEWS: HISTORY: Left leg injury. FINDINGS: Degenerative changes of the knee and ankle are apparent. Tibia and fibula are intact. No acute frac ture or dislocation. IMPRESSION: No acute osseous abnormalities are demonstrated. POS: LUMA
== END 2018-02-01 14:25 | disposition home or self-care (01) ==
LOC: NAV ERS 12:49
DX: S51.012A Laceration without foreign body of left elbow, initial encounter (principal); S51.011A Laceration without foreign body of right elbow, initial encounter; S81.812A Laceration without foreign body, left lower leg, initial encounter; S51.812A Laceration without foreign body of left forearm, initial encounter; S93.401A Sprain of unspecified ligament of right ankle, initial encounter; N40.0 Benign prostatic hyperplasia without lower urinary tract symptoms; K21.9 Gastro-esophageal reflux disease without esophagitis; I25.10 Atherosclerotic heart disease of native coronary artery without angina pectoris; E11.9 Type 2 diabetes mellitus without complications; E78.5 Hyperlipidemia, unspecified; I10 Essential (primary) hypertension; M10.9 Gout, unspecified; F41.9 Anxiety disorder, unspecified; F32.9 Major depressive disorder, single episode, unspecified; Z87.891 Personal history of nicotine dependence; W20.8XXA Other cause of strike by thrown, projected or falling object, initial encounter

== ENCOUNTER 2018-03-13 18:38 | Emergency (ER) | payer MEDICARE, OTHER ==
[2018-03-13 19:41] LABS: ALT (SGPT) 13 U/L (8-55); AST (SGOT) 15 U/L (5-34); Albumin 4.2 g/dL (3.4-4.8); Alkaline Phosphatase 57 U/L (40-150); Anion Gap 13 mmol/L (10-20); BUN (Urea Nitrogen) 30 mg/dL (8.4-25.7); Bilirubin, Total 0.4 mg/dL (0.2-1.2); Calc. Creatinine Clearance 0 mL/min (70-130); Calcium 9.4 mg/dL (7.8-10.44); Carbon Dioxide 21 mmol/L (23-31); Chloride 107 mmol/L (98-107); Estimated GFR-MDRD 61; Globulin 2.2 g/dL (2.4-3.5); Glucose 120 mg/dL (83-110); Potassium 4.2 mmol/L (3.5-5.1); Protein, Total 6.4 g/dL (5.8-8.1); Sodium 137 mmol/L (136-145)
[2018-03-13 19:42] LABS: Band 2 % (5-11); Hemoglobin 12.5 g/dL (14.0-18.0); Lymphocytes 8 % (21-51); MDiff Complete? YES; Mean Corpuscular HGB CONC 33.2 g/dL (32.0-36.0); Mean Corpuscular Hemoglobin 28.9 pg (27.0-31.0); Mean Corpuscular Volume 86.8 fL (78.0-98.0); Monocytes 6 % (0-10); Neutrophil 83 % (42-75); PLT Morphology Comment Appears Adequate; Platelet Count 181 thou/uL (130-400); RBC Distribution Width 12.1 % (11.5-14.5); RBC Morphology Normal; Red Blood Cell (RBC) Count 4.34 mill/uL (4.70-6.10); White Blood Cell (WBC) Count 10.8 thou/uL (4.8-10.8)
[2018-03-13 20:07] LABS: Bilirubin Negative (Negative); Blood, Urine Trace (Negative); Clarity Clear (Clear); Glucose, Urine (Dipstick) Negative (Negative); Leukocyte Large (Negative); Nitrite Negative (Negative); Protein, Urine (Dipstick) Negative (Neg-Trace); Urobilinogen 0.2 mg/dL (0.2-1.0)
[2018-03-13 20:14] LABS: Bacteria/HPF 2+ HPF (None Seen); RBC/HPF 0-3 HPF (0-3); Squamous Epithelial 0-3 HPF (0-3); WBC/HPF 21-50 HPF (0-3)
[2018-03-13] MEDS ORDERED: Sodium Chloride 0.9% 500 ML ONE (20:21)
[2018-03-13] MEDS ORDERED: Ondansetron PF 4 MG/2 ML Vial ONE (20:21)
[2018-03-13] MEDS ORDERED: Sodium Chloride 0.9% 100 ML ONE (20:31)
[2018-03-13] MEDS ORDERED: cefTRIAXone\\ROCEPHIN 2 GM VIAL ONE (20:31)
--- NOTE | 2018-03-13 21:05 | RAD ---
PORTABLE SEMIUPRIGHT FRONTAL CHEST RADIOGRAPH: 03/13/2018 HISTORY: Fever. Hypoglycemia. COMPARISON: 10/24/2011 FINDINGS: Heart and mediastinal contours appears within normal limits. No pneumothorax, pleural fluid, focal c onsolidation, or alveolar edema. IMPRESSION: No acute findings. POS: [facility]
== END 2018-03-13 20:55 | disposition home or self-care (01) ==
LOC: NAV ERS 18:38
DX: N39.0 Urinary tract infection, site not specified (principal); E11.9 Type 2 diabetes mellitus without complications; K21.9 Gastro-esophageal reflux disease without esophagitis; N40.0 Benign prostatic hyperplasia without lower urinary tract symptoms; I25.10 Atherosclerotic heart disease of native coronary artery without angina pectoris; M19.90 Unspecified osteoarthritis, unspecified site; D55.0 Anemia due to glucose-6-phosphate dehydrogenase [G6PD] deficiency; M10.9 Gout, unspecified; F41.9 Anxiety disorder, unspecified; F32.9 Major depressive disorder, single episode, unspecified; Z87.891 Personal history of nicotine dependence; Z79.899 Other long term (current) drug therapy; Z79.84 Long term (current) use of oral hypoglycemic drugs; Z79.891 Long term (current) use of opiate analgesic
CPT/HCPCS: 36416; 71045; 80053; 81003; 81015; 83605; 85025; 87040; 87077; 87086; 87186; 87804; 96365; 96375; J0696; J2405; J7050

== ENCOUNTER 2018-07-31 17:25 | Emergency (ER) | payer MEDICARE, OTHER ==
[2018-07-31] MEDS ORDERED: Sodium Chloride 0.9% 500 ML ONE (17:43)
[2018-07-31 18:00] LABS: Hemoglobin 12.4 g/dL (14.0-18.0); Mean Corpuscular Hemoglobin 27.3 pg (27.0-31.0); Mean Corpuscular Volume 85.3 fL (78.0-98.0); Mean Platelet Volume 6.1 fL (7.4-10.4); Platelet Count 156 thou/uL (130-400); RBC Distribution Width 13.3 % (11.5-14.5); Red Blood Cell (RBC) Count 4.56 mill/uL (4.70-6.10); White Blood Cell (WBC) Count 11.5 thou/uL (4.8-10.8)
[2018-07-31 18:07] LABS: Lymphocytes 2 % (21-51); MDiff Complete? YES; Monocytes 4 % (0-10); Neutrophil 94 % (42-75); Platelet Morphology Comment Appears Adequate; RBC Morphology Normal
--- NOTE | 2018-07-31 18:14 | RAD ---
RADIOGRAPH CHEST 1 VIEW: 07/31/18 HISTORY: 77-year-old male with body aches. FINDINGS: There are no air space densities, pulmonary edema, pneumothorax, or cardiomegaly. The lateral costop hrenic angles are sharp. IMPRESSION: No acute cardiopulmonary findings. shantel [] POS: LUMA
[2018-07-31 18:16] LABS: ALT (SGPT) 19 U/L (8-55); AST (SGOT) 23 U/L (5-34); Albumin 4.3 g/dL (3.4-4.8); Alkaline Phosphatase 60 U/L (40-150); Anion Gap 15 mmol/L (10-20); BUN (Urea Nitrogen) 29 mg/dL (8.4-25.7); Bilirubin, Total 0.5 mg/dL (0.2-1.2); Calc. Creatinine Clearance 0 mL/min (70-130); Calcium 9.7 mg/dL (7.8-10.44); Carbon Dioxide 20 mmol/L (23-31); Chloride 104 mmol/L (98-107); Estimated GFR-MDRD 62; Glucose 125 mg/dL (83-110); Potassium 4.7 mmol/L (3.5-5.1); Protein, Total 6.3 g/dL (5.8-8.1); Sodium 134 mmol/L (136-145)
[2018-07-31 18:36] LABS: Bilirubin Negative (Negative); Blood, Urine Small (Negative); Clarity Clear (Clear); Nitrite Negative (Negative); Urobilinogen 0.2 mg/dL (0.2-1.0)
[2018-07-31 18:57] LABS: Specific Gravity, Urine 1.015 (1.005-1.030)
[2018-07-31 18:58] LABS: Leukocyte Small (Negative)
[2018-07-31 18:59] LABS: Glucose, Urine (Dipstick) Negative (Negative); Protein, Urine (Dipstick) Negative (Neg-Trace)
[2018-07-31 19:01] LABS: Bacteria/HPF 1+ HPF (None Seen); RBC/HPF 0-3 HPF (0-3); Squamous Epithelial 0-3 HPF (0-3); WBC/HPF 21-50 HPF (0-3)
== END 2018-07-31 19:13 | disposition home or self-care (01) ==
LOC: NAV ERS 17:25
DX: M79.10 Myalgia, unspecified site (principal); N40.0 Benign prostatic hyperplasia without lower urinary tract symptoms; K21.9 Gastro-esophageal reflux disease without esophagitis; F41.9 Anxiety disorder, unspecified; M19.90 Unspecified osteoarthritis, unspecified site; F32.9 Major depressive disorder, single episode, unspecified; I49.9 Cardiac arrhythmia, unspecified; I25.10 Atherosclerotic heart disease of native coronary artery without angina pectoris; E11.9 Type 2 diabetes mellitus without complications; E78.5 Hyperlipidemia, unspecified; I10 Essential (primary) hypertension; M10.9 Gout, unspecified; Z87.891 Personal history of nicotine dependence; Z79.899 Other long term (current) drug therapy
CPT/HCPCS: 71045; 80053; 81003; 81015; 83605; 84484; 85025; 87804; J7050

== ENCOUNTER 2018-11-27 18:13 | Emergency (ER) | payer MEDICARE, OTHER ==
[2018-11-27] MEDS ORDERED: Lidocaine 1% (PF) 30 ML VIAL ONE (18:44)
[2018-11-27] MEDS ORDERED: cefTRIAXone\\ROCEPHIN 1 GM VIAL ONE (18:44)
--- NOTE | 2018-11-28 08:18 | RAD ---
EXAM: XR Foot Rt 3 View STANDARD PROVIDED CLINICAL HISTORY: Pain FINDINGS: There is no evidence for fracture or other acute osseous abnormality. Alignment appears anatomic. Brisa nt spaces appear preserved. IMPRESSION: No evidence for an acute osseous abnormality. If there is persistent clinical concern, conservative m anagement and follow-up imaging advised.
== END 2018-11-27 19:35 | disposition home or self-care (01) ==
LOC: NAV ERS 18:13
DX: L03.115 Cellulitis of right lower limb (principal); M10.9 Gout, unspecified; D50.9 Iron deficiency anemia, unspecified; N40.0 Benign prostatic hyperplasia without lower urinary tract symptoms; E11.9 Type 2 diabetes mellitus without complications; E78.5 Hyperlipidemia, unspecified; I10 Essential (primary) hypertension; K21.9 Gastro-esophageal reflux disease without esophagitis; Z87.891 Personal history of nicotine dependence; Z79.899 Other long term (current) drug therapy; Z79.84 Long term (current) use of oral hypoglycemic drugs
CPT/HCPCS: 96372; J0696; J2001

== ENCOUNTER 2019-11-25 12:05 | Emergency (ER) | payer MEDICARE, OTHER ==
[2019-11-25] MEDS ORDERED: Acetaminophen 500 MG TAB ONE (12:45)
[2019-11-25 12:58] LABS: #Basophils 0.1 thou/uL (0.0-0.2); #Eosinphils 0.1 thou/uL (0.0-0.7); #Lymphocytes 1.1 thou/uL (1.20-3.40); #Monocytes 0.4 thou/uL (0.11-0.59); #Neutrophils 7.8 thou/uL (1.40-6.50); %Basophils 0.5 % (0.0-1.0); %Eosinophils 0.9 % (0.0-10.0); %Lymphocytes 11.6 % (21.0-51.0); %Monocytes 4.4 % (0.0-10.0); %Neutrophils 82.6 % (42.0-75.0); Mean Corpuscular HGB CONC 32.4 g/dL (32.0-36.0); Mean Corpuscular Hemoglobin 27.5 pg (27.0-31.0); Mean Platelet Volume 7.3 fL (7.4-10.4); Platelet Count 160 thou/uL (130-400); Red Blood Cell (RBC) Count 4.01 mill/uL (4.70-6.10); White Blood Cell (WBC) Count 9.5 thou/uL (4.8-10.8)
== END 2019-11-25 13:55 | disposition home or self-care (01) ==
LOC: NAV ERS 12:05
DX: L03.114 Cellulitis of left upper limb (principal); M19.022 Primary osteoarthritis, left elbow; D50.9 Iron deficiency anemia, unspecified; N40.0 Benign prostatic hyperplasia without lower urinary tract symptoms; K21.9 Gastro-esophageal reflux disease without esophagitis; I25.10 Atherosclerotic heart disease of native coronary artery without angina pectoris; E11.9 Type 2 diabetes mellitus without complications; E78.5 Hyperlipidemia, unspecified; I10 Essential (primary) hypertension; M10.9 Gout, unspecified; F41.9 Anxiety disorder, unspecified; F32.9 Major depressive disorder, single episode, unspecified; Z87.891 Personal history of nicotine dependence; Z79.899 Other long term (current) drug therapy; Z79.84 Long term (current) use of oral hypoglycemic drugs
CPT/HCPCS: 36416; 84550; 85025; 99283

== ENCOUNTER 2022-08-15 14:44 | Emergency (ER) | payer OTHER | END 2022-08-15 15:45 | disposition home or self-care (01) | LOC: NAV ERS 14:44 | DX: M70.21 Olecranon bursitis, right elbow (principal); E11.9 Type 2 diabetes mellitus without complications; D50.9 Iron deficiency anemia, unspecified; E78.5 Hyperlipidemia, unspecified; Z79.899 Other long term (current) drug therapy; Z87.891 Personal history of nicotine dependence; Z79.01 Long term (current) use of anticoagulants; I10 Essential (primary) hypertension; D53.9 Nutritional anemia, unspecified | CPT/HCPCS: 99283 ==

== ENCOUNTER 2022-12-13 18:45 | Emergency (ER) | payer OTHER, MEDICARE | END 2022-12-13 19:37 | disposition home or self-care (01) | LOC: NAV ERS 18:45 | DX: L03.115 Cellulitis of right lower limb (principal); L03.116 Cellulitis of left lower limb; K21.9 Gastro-esophageal reflux disease without esophagitis; E11.9 Type 2 diabetes mellitus without complications; E78.5 Hyperlipidemia, unspecified; I10 Essential (primary) hypertension; Z79.01 Long term (current) use of anticoagulants; Z79.84 Long term (current) use of oral hypoglycemic drugs; Z79.899 Other long term (current) drug therapy | CPT/HCPCS: 99283 ==

== ENCOUNTER 2023-02-27 12:02 | Inpatient (IN) | payer OTHER, MEDICAID ==
[2023-02-27] MEDS ORDERED: Famotidine 20 MG TAB PO SCH (21:00)
[2023-02-27] MEDS: metFORMIN 500 MG TAB PO SCH (21:13)
[2023-02-27] MEDS: Finasteride 5 MG TAB PO SCH (21:13)
[2023-02-27] MEDS: COPPER PO SCH (21:15)
[2023-02-27] MEDS: VIT A PO SCH (21:15)
[2023-02-27] MEDS: VIT E PO SCH (21:15)
[2023-02-27] MEDS: ZINC PO SCH (21:15)
[2023-02-27] MEDS: VIT C PO SCH (21:15)
[2023-02-27] MEDS: Senokot S 8.6-50 MG TAB PO PRN (21:18)
[2023-02-28] MEDS: traMADol HCl 50 MG TAB PO PRN ×4 (04:22→20:25)
[2023-02-28 05:53] LABS: #Eosinphils 0.1 thou/uL (0.0-0.7); #Lymphocytes 0.5 thou/uL (1.20-3.40); #Monocytes 0.3 thou/uL (0.11-0.59); #Neutrophils 4.2 thou/uL (1.40-6.50); %Basophils 0.6 % (0.0-1.0); %Eosinophils 2.5 % (0.0-10.0); %Lymphocytes 9.4 % (21.0-51.0); %Monocytes 5.5 % (0.0-10.0); Hematocrit 25.7 % (42.0-52.0); Hemoglobin 8.4 g/dL (14.0-18.0); Mean Corpuscular HGB CONC 32.7 g/dL (32.0-36.0); Mean Corpuscular Hemoglobin 27.7 pg (27.0-31.0); Mean Corpuscular Volume 84.6 fl (78.0-98.0); Mean Platelet Volume 6.5 fL (7.4-10.4); Platelet Count 206 10x3/uL (130-400); Red Blood Cell (RBC) Count 3.04 mill/uL (4.70-6.10); White Blood Cell (WBC) Count 5.1 10x3/uL (4.8-10.8)
[2023-02-28 06:00] LABS: ALT (SGPT) 10 U/L (8-55); AST (SGOT) 11 U/L (5-34); Albumin 3.1 g/dL (3.4-4.8); Alkaline Phosphatase 52 U/L (40-110); Anion Gap 13 mmol/L (10-20); BUN (Urea Nitrogen) 13 mg/dL (8.4-25.7); Bilirubin, Total 0.7 mg/dL (0.2-1.2); Calc. Creatinine Clearance 80 mL/min (70-130); Calcium 8.4 mg/dL (7.8-10.44); Carbon Dioxide 25 mmol/L (23-31); Chloride 102 mmol/L (98-107); Estimated GFR 87; Globulin 2.1 g/dL (2.4-3.5); Glucose 148 mg/dL (83-110); Protein, Total 5.2 g/dL (5.8-8.1); Sodium 136 mmol/L (136-145)
[2023-02-28 06:03] LABS: Bilirubin Small (Negative); Blood, Urine Large (Negative); Clarity Clear (Clear); Glucose, Urine (Dipstick) Negative (Negative); Ketone, Urine 40 mg/dL (Negative); Leukocyte Negative (Negative); Nitrite Negative (Negative); Protein, Urine (Dipstick) 30 mg/dL (Neg-Trace); Urobilinogen 0.2 mg/dL (Less than 2)
[2023-02-28 06:09] LABS: CAUTI Indications for Culture Alt mental st,lethar; RBC/HPF Greater than 50 HPF (0-3)
[2023-02-28 06:11] LABS: Bacteria/HPF None Seen HPF (None Seen); Urine Culture Reflex No No
[2023-02-28] MEDS: metFORMIN 500 MG TAB PO SCH ×2 (09:12→20:25)
[2023-02-28] MEDS: Doxazosin 2 MG TAB PO SCH (09:12)
[2023-02-28] MEDS: Apixaban 5 MG TAB PO SCH ×2 (09:13→20:25)
[2023-02-28] MEDS: Lisinopril 5 MG TAB PO SCH (09:13)
[2023-02-28] MEDS: Senokot S 8.6-50 MG TAB PO PRN (09:13)
[2023-02-28] MEDS: Sertraline 100 MG TAB PO SCH (09:13)
[2023-02-28] MEDS: Vit A,C & E/Lutein/Minerals Tablet PO SCH ×3 (09:14→20:25)
[2023-02-28] MEDS: COPPER PO SCH (09:14)
[2023-02-28] MEDS: VIT E PO SCH (09:14)
[2023-02-28] MEDS: VIT A PO SCH (09:14)
[2023-02-28] MEDS: VIT C PO SCH (09:14)
[2023-02-28] MEDS: ZINC PO SCH (09:14)
[2023-02-28] MEDS ORDERED: Bisacodyl 10 MG SUPP PR PRN (12:17)
[2023-02-28] MEDS: Bisacodyl 5 MG TAB PO PRN (14:15)
[2023-02-28] MEDS: Finasteride 5 MG TAB PO SCH (20:25)
[2023-02-28] MEDS: traZODone HCl 50 MG TAB PO PRN (20:57)
[2023-03-01] MEDS: traMADol HCl 50 MG TAB PO PRN ×2 (09:06→20:09)
[2023-03-01] MEDS: Doxazosin 2 MG TAB PO SCH (09:08)
[2023-03-01] MEDS: Lisinopril 5 MG TAB PO SCH (09:09)
[2023-03-01] MEDS: metFORMIN 500 MG TAB PO SCH ×2 (09:09→20:06)
[2023-03-01] MEDS: Sertraline 100 MG TAB PO SCH (09:09)
[2023-03-01] MEDS: Vit A,C & E/Lutein/Minerals Tablet PO SCH ×2 (09:09→20:06)
[2023-03-01] MEDS: Apixaban 5 MG TAB PO SCH ×2 (09:09→20:06)
[2023-03-01] MEDS ORDERED: Dextrose 50% Abboject 50 ML SYRINGE SLOW IVP PRN (17:32)
[2023-03-01] MEDS ORDERED: Glucagon 1 MG/ML KIT IM PRN (17:32)
[2023-03-01] MEDS ORDERED: HumaLOG 300 UNITS/3 ML VIAL SC PRN (17:32)
[2023-03-01] MEDS: Finasteride 5 MG TAB PO SCH (20:06)
[2023-03-01] MEDS: traZODone HCl 50 MG TAB PO PRN (20:06)
[2023-03-02] MEDS: traMADol HCl 50 MG TAB PO PRN ×2 (04:22→11:55)
[2023-03-02] MEDS: Vit A,C & E/Lutein/Minerals Tablet PO SCH (08:45)
[2023-03-02] MEDS: Doxazosin 2 MG TAB PO SCH (08:45)
[2023-03-02] MEDS: Apixaban 5 MG TAB PO SCH (08:45)
[2023-03-02] MEDS: metFORMIN 500 MG TAB PO SCH (08:45)
[2023-03-02] MEDS: Sertraline 100 MG TAB PO SCH (08:46)
[2023-03-02] MEDS: Lisinopril 5 MG TAB PO SCH (08:46)
[2023-03-02] MEDS ORDERED: risperiDONE 0.5 MG TAB PO SCH (16:15)
[2023-03-03] MEDS: Apixaban 5 MG TAB PO SCH ×5 (01:49→20:25)
[2023-03-03] MEDS: Finasteride 5 MG TAB PO SCH ×3 (01:50→20:25)
[2023-03-03] MEDS: Vit A,C & E/Lutein/Minerals Tablet PO SCH ×5 (01:50→20:28)
[2023-03-03] MEDS: Temazepam 15 MG CAP PO SCH ×2 (01:50→05:05)
[2023-03-03] MEDS: metFORMIN 500 MG TAB PO SCH ×5 (01:50→20:24)
[2023-03-03] MEDS: Lisinopril 5 MG TAB PO SCH ×3 (10:38→12:32)
[2023-03-03] MEDS: Doxazosin 2 MG TAB PO SCH ×2 (10:38→12:23)
[2023-03-03] MEDS: Sertraline 100 MG TAB PO SCH ×3 (10:38→12:31)
[2023-03-03] MEDS: Senokot S 8.6-50 MG TAB PO PRN (12:28)
[2023-03-03] MEDS: risperiDONE 0.5 MG TAB PO SCH (20:26)
[2023-03-04] MEDS: Lisinopril 5 MG TAB PO SCH (08:14)
[2023-03-04] MEDS: metFORMIN 500 MG TAB PO SCH ×2 (08:14→21:27)
[2023-03-04] MEDS: Doxazosin 2 MG TAB PO SCH (08:15)
[2023-03-04] MEDS: Apixaban 5 MG TAB PO SCH ×2 (08:15→21:27)
[2023-03-04] MEDS: Sertraline 100 MG TAB PO SCH (08:16)
[2023-03-04] MEDS: Bisacodyl 5 MG TAB PO PRN (08:16)
[2023-03-04] MEDS: traMADol HCl 50 MG TAB PO PRN (08:42)
[2023-03-04] MEDS: Vit A,C & E/Lutein/Minerals Tablet PO SCH ×2 (08:55→21:27)
[2023-03-04] MEDS: risperiDONE 0.5 MG TAB PO SCH (21:27)
[2023-03-04] MEDS: Finasteride 5 MG TAB PO SCH (21:27)
[2023-03-05 06:02] LABS: #Basophils 0.1 thou/uL (0.0-0.2); #Eosinphils 0.1 thou/uL (0.0-0.7); #Lymphocytes 0.9 thou/uL (1.20-3.40); #Monocytes 0.4 thou/uL (0.11-0.59); #Neutrophils 6.4 thou/uL (1.40-6.50); %Basophils 0.7 % (0.0-1.0); %Eosinophils 1.6 % (0.0-10.0); %Lymphocytes 11.3 % (21.0-51.0); %Monocytes 5.1 % (0.0-10.0); %Neutrophils 81.3 % (42.0-75.0); Hematocrit 27.8 % (42.0-52.0); Mean Corpuscular HGB CONC 32.3 g/dL (32.0-36.0); Mean Corpuscular Hemoglobin 27.5 pg (27.0-31.0); Mean Platelet Volume 6.1 fL (7.4-10.4); Platelet Count 286 10x3/uL (130-400); RBC Distribution Width 14.2 % (11.5-14.5); Red Blood Cell (RBC) Count 3.27 mill/uL (4.70-6.10); White Blood Cell (WBC) Count 7.8 10x3/uL (4.8-10.8)
[2023-03-05 06:16] LABS: Anion Gap 15 mmol/L (10-20); BUN (Urea Nitrogen) 21 mg/dL (8.4-25.7); Calc. Creatinine Clearance 72 mL/min (70-130); Calcium 8.7 mg/dL (7.8-10.44); Carbon Dioxide 24 mmol/L (23-31); Chloride 100 mmol/L (98-107); Estimated GFR 85; Glucose 176 mg/dL (83-110); Potassium 3.8 mmol/L (3.5-5.1); Sodium 135 mmol/L (136-145)
[2023-03-05] MEDS: Apixaban 5 MG TAB PO SCH ×2 (09:22→21:07)
[2023-03-05] MEDS: Vit A,C & E/Lutein/Minerals Tablet PO SCH ×2 (09:23→21:07)
[2023-03-05] MEDS: Doxazosin 2 MG TAB PO SCH (09:23)
[2023-03-05] MEDS: metFORMIN 500 MG TAB PO SCH ×2 (09:24→21:07)
[2023-03-05] MEDS: Lisinopril 5 MG TAB PO SCH (09:24)
[2023-03-05] MEDS: Sertraline 100 MG TAB PO SCH (09:24)
[2023-03-05] MEDS: traMADol HCl 50 MG TAB PO PRN ×2 (14:05→21:13)
[2023-03-05] MEDS: Finasteride 5 MG TAB PO SCH (21:08)
[2023-03-05] MEDS: risperiDONE 0.5 MG TAB PO SCH (21:08)
[2023-03-06] MEDS: Doxazosin 2 MG TAB PO SCH (10:00)
[2023-03-06] MEDS: metFORMIN 500 MG TAB PO SCH ×2 (10:00→21:01)
[2023-03-06] MEDS: traMADol HCl 50 MG TAB PO PRN (10:00)
[2023-03-06] MEDS: Apixaban 5 MG TAB PO SCH ×2 (10:01→21:01)
[2023-03-06] MEDS: Vit A,C & E/Lutein/Minerals Tablet PO SCH ×2 (10:01→21:02)
[2023-03-06] MEDS: Lisinopril 5 MG TAB PO SCH (10:01)
[2023-03-06] MEDS: Sertraline 100 MG TAB PO SCH (10:01)
[2023-03-06] MEDS: Finasteride 5 MG TAB PO SCH (21:03)
[2023-03-06] MEDS: risperiDONE 0.5 MG TAB PO SCH (21:04)
[2023-03-07] MEDS: traMADol HCl 50 MG TAB PO PRN (07:49)
[2023-03-07] MEDS: Sertraline 100 MG TAB PO SCH (07:49)
[2023-03-07] MEDS: Vit A,C & E/Lutein/Minerals Tablet PO SCH ×2 (07:50→20:21)
[2023-03-07] MEDS: Doxazosin 2 MG TAB PO SCH (07:50)
[2023-03-07] MEDS: metFORMIN 500 MG TAB PO SCH ×2 (07:50→20:21)
[2023-03-07] MEDS: Apixaban 5 MG TAB PO SCH ×2 (07:50→20:21)
[2023-03-07] MEDS: Lisinopril 5 MG TAB PO SCH (07:50)
[2023-03-07] MEDS: Finasteride 5 MG TAB PO SCH (20:21)
[2023-03-07] MEDS: risperiDONE 0.5 MG TAB PO SCH (20:21)
[2023-03-08] MEDS: Vit A,C & E/Lutein/Minerals Tablet PO SCH ×2 (08:10→21:24)
[2023-03-08] MEDS: Sertraline 100 MG TAB PO SCH (08:10)
[2023-03-08] MEDS: Doxazosin 2 MG TAB PO SCH (08:10)
[2023-03-08] MEDS: traMADol HCl 50 MG TAB PO PRN (08:11)
[2023-03-08] MEDS: Apixaban 5 MG TAB PO SCH ×2 (08:11→21:03)
[2023-03-08] MEDS: Lisinopril 5 MG TAB PO SCH (08:12)
[2023-03-08] MEDS: metFORMIN 500 MG TAB PO SCH ×2 (08:12→21:03)
[2023-03-08] MEDS: Finasteride 5 MG TAB PO SCH (21:03)
[2023-03-08] MEDS: risperiDONE 0.5 MG TAB PO SCH (21:03)
[2023-03-09] MEDS: Vit A,C & E/Lutein/Minerals Tablet PO SCH ×2 (09:22→20:48)
[2023-03-09] MEDS: Doxazosin 2 MG TAB PO SCH (09:23)
[2023-03-09] MEDS: metFORMIN 500 MG TAB PO SCH ×2 (09:24→20:46)
[2023-03-09] MEDS: Apixaban 5 MG TAB PO SCH ×2 (09:24→20:46)
[2023-03-09] MEDS: Lisinopril 5 MG TAB PO SCH (09:25)
[2023-03-09] MEDS: Sertraline 100 MG TAB PO SCH (09:26)
[2023-03-09] MEDS: traMADol HCl 50 MG TAB PO PRN ×2 (11:47→18:41)
[2023-03-09] MEDS: Finasteride 5 MG TAB PO SCH (20:46)
[2023-03-09] MEDS: risperiDONE 0.5 MG TAB PO SCH (20:46)
[2023-03-10] MEDS: traMADol HCl 50 MG TAB PO PRN (06:32)
[2023-03-10] MEDS: Sertraline 100 MG TAB PO SCH (08:41)
[2023-03-10] MEDS: Apixaban 5 MG TAB PO SCH ×2 (08:41→20:29)
[2023-03-10] MEDS: metFORMIN 500 MG TAB PO SCH ×2 (08:42→20:30)
[2023-03-10] MEDS: Vit A,C & E/Lutein/Minerals Tablet PO SCH ×2 (08:43→20:29)
[2023-03-10] MEDS: Doxazosin 2 MG TAB PO SCH (08:44)
[2023-03-10] MEDS: Lisinopril 5 MG TAB PO SCH (08:44)
[2023-03-10] MEDS: HumaLOG 300 UNITS/3 ML VIAL SC PRN (11:31)
[2023-03-10 12:01] VITALS: BMI 28.3
[2023-03-10] MEDS: Finasteride 5 MG TAB PO SCH (20:30)
[2023-03-10] MEDS: risperiDONE 0.5 MG TAB PO SCH (20:30)
[2023-03-11] MEDS: traMADol HCl 50 MG TAB PO PRN ×2 (03:18→10:09)
[2023-03-11] MEDS: Vit A,C & E/Lutein/Minerals Tablet PO SCH ×2 (08:08→20:58)
[2023-03-11] MEDS: Apixaban 5 MG TAB PO SCH ×2 (08:09→20:42)
[2023-03-11] MEDS: metFORMIN 500 MG TAB PO SCH ×2 (08:09→20:59)
[2023-03-11] MEDS: Doxazosin 2 MG TAB PO SCH (08:09)
[2023-03-11] MEDS: Sertraline 100 MG TAB PO SCH (08:09)
[2023-03-11] MEDS: Lisinopril 5 MG TAB PO SCH (08:09)
[2023-03-11] MEDS: HumaLOG 300 UNITS/3 ML VIAL SC PRN (11:34)
[2023-03-11] MEDS: risperiDONE 0.5 MG TAB PO SCH (20:42)
[2023-03-11] MEDS: Finasteride 5 MG TAB PO SCH (20:59)
[2023-03-12 05:55] LABS: #Basophils 0.1 thou/uL (0.0-0.2); #Eosinphils 0.1 thou/uL (0.0-0.7); #Monocytes 0.5 thou/uL (0.11-0.59); #Neutrophils 5.8 thou/uL (1.40-6.50); %Eosinophils 1.9 % (0.0-10.0); %Lymphocytes 13.7 % (21.0-51.0); %Monocytes 6.6 % (0.0-10.0); %Neutrophils 76.8 % (42.0-75.0); Hematocrit 27.8 % (42.0-52.0); Hemoglobin 8.9 g/dL (14.0-18.0); Mean Corpuscular Hemoglobin 26.6 pg (27.0-31.0); Mean Corpuscular Volume 83.2 fl (78.0-98.0); Mean Platelet Volume 5.3 fL (7.4-10.4); Platelet Count 446 10x3/uL (130-400); RBC Distribution Width 14.4 % (11.5-14.5); Red Blood Cell (RBC) Count 3.34 mill/uL (4.70-6.10); White Blood Cell (WBC) Count 7.5 10x3/uL (4.8-10.8)
[2023-03-12 06:12] LABS: Anion Gap 13 mmol/L (10-20); BUN (Urea Nitrogen) 32 mg/dL (8.4-25.7); Calc. Creatinine Clearance 62 mL/min (70-130); Calcium 8.9 mg/dL (7.8-10.44); Carbon Dioxide 24 mmol/L (23-31); Chloride 100 mmol/L (98-107); Estimated GFR 74; Glucose 171 mg/dL (83-110); Potassium 4.3 mmol/L (3.5-5.1); Sodium 133 mmol/L (136-145)
[2023-03-12] MEDS: metFORMIN 500 MG TAB PO SCH ×2 (07:58→20:24)
[2023-03-12] MEDS: Apixaban 5 MG TAB PO SCH ×2 (07:59→20:24)
[2023-03-12] MEDS: Sertraline 100 MG TAB PO SCH (07:59)
[2023-03-12] MEDS: Lisinopril 5 MG TAB PO SCH (08:00)
[2023-03-12] MEDS: Doxazosin 2 MG TAB PO SCH (08:00)
[2023-03-12] MEDS: Vit A,C & E/Lutein/Minerals Tablet PO SCH ×2 (08:00→20:24)
[2023-03-12] MEDS: traMADol HCl 50 MG TAB PO PRN ×2 (08:18→15:49)
[2023-03-12] MEDS ORDERED: Colchicine 0.6 MG TAB PO SCH (15:15)
[2023-03-12] MEDS: risperiDONE 0.5 MG TAB PO SCH (20:24)
[2023-03-12] MEDS: Finasteride 5 MG TAB PO SCH (20:24)
[2023-03-13 07:49] VITALS: BP 124/58; TEMP 98.1
[2023-03-13] MEDS: Doxazosin 2 MG TAB PO SCH (08:05)
[2023-03-13] MEDS: traMADol HCl 50 MG TAB PO PRN ×2 (08:06→11:49)
[2023-03-13] MEDS: Lisinopril 5 MG TAB PO SCH (08:06)
[2023-03-13] MEDS: Apixaban 5 MG TAB PO SCH (08:07)
[2023-03-13] MEDS: metFORMIN 500 MG TAB PO SCH (08:07)
[2023-03-13] MEDS: Sertraline 100 MG TAB PO SCH (08:07)
[2023-03-13] MEDS: Vit A,C & E/Lutein/Minerals Tablet PO SCH (08:07)
== END 2023-03-13 15:58 | DRG 560 ==
LOC: NAV ACUTE 16:27
PROVIDERS: ADMIT Family Medicine; ATTEND Family Medicine
DX: S72.142D Displaced intertrochanteric fracture of left femur, subsequent encounter for closed fracture with routine healing (principal); F03.911 Unspecified dementia, unspecified severity, with agitation; T81.31XA Disruption of external operation (surgical) wound, not elsewhere classified, initial encounter; E11.9 Type 2 diabetes mellitus without complications; I10 Essential (primary) hypertension; K21.9 Gastro-esophageal reflux disease without esophagitis; F41.9 Anxiety disorder, unspecified; I25.10 Atherosclerotic heart disease of native coronary artery without angina pectoris; N40.0 Benign prostatic hyperplasia without lower urinary tract symptoms; F17.210 Nicotine dependence, cigarettes, uncomplicated; G47.00 Insomnia, unspecified; M10.9 Gout, unspecified; Y83.8 Other surgical procedures as the cause of abnormal reaction of the patient, or of later complication, without mention of misadventure at the time of the procedure; D64.9 Anemia, unspecified; Z98.890 Other specified postprocedural states; Z88.8 Allergy status to other drugs, medicaments and biological substances; Z88.1 Allergy status to other antibiotic agents; Z88.2 Allergy status to sulfonamides; Z88.0 Allergy status to penicillin; Z91.014 Allergy to mammalian meats
CPT/HCPCS: 36415; 36416; 80048; 80053; 81001; 85025; 87086; J1815

== ENCOUNTER 2024-12-15 16:23 | Emergency (ER) | payer OTHER | END 2024-12-15 18:54 | disposition home or self-care (01) | LOC: NAV ERS 16:23 | DX: S43.401A Unspecified sprain of right shoulder joint, initial encounter (principal); I25.10 Atherosclerotic heart disease of native coronary artery without angina pectoris; K21.9 Gastro-esophageal reflux disease without esophagitis; E11.9 Type 2 diabetes mellitus without complications; E78.5 Hyperlipidemia, unspecified; I10 Essential (primary) hypertension; Z79.891 Long term (current) use of opiate analgesic; Z79.84 Long term (current) use of oral hypoglycemic drugs; Z79.02 Long term (current) use of antithrombotics/antiplatelets; Z79.899 Other long term (current) drug therapy; Y04.0XXA Assault by unarmed brawl or fight, initial encounter | CPT/HCPCS: 99283 ==

== ENCOUNTER 2025-01-04 16:59 | Emergency (ER) | payer OTHER | END 2025-01-04 19:10 | disposition home or self-care (01) | LOC: NAV ERS 16:59 | DX: M25.552 Pain in left hip (principal); M25.511 Pain in right shoulder; G89.29 Other chronic pain; M89.352 Hypertrophy of bone, left femur; I10 Essential (primary) hypertension; E11.9 Type 2 diabetes mellitus without complications; I25.10 Atherosclerotic heart disease of native coronary artery without angina pectoris; K21.9 Gastro-esophageal reflux disease without esophagitis; Z87.891 Personal history of nicotine dependence; Z79.899 Other long term (current) drug therapy; Z79.84 Long term (current) use of oral hypoglycemic drugs; Z79.01 Long term (current) use of anticoagulants ==